=== PATIENT | male | born 2000 | race African-American/Black ===

== ENCOUNTER 2020-09-30 23:23 | Emergency (ER) | payer SELFPAY, OTHER ==
[~2020-09-30 23:23] MED LIST: Iopamidol-370 76% 500 ML 1 ML ONE
[2020-09-30] MEDS ORDERED: Ketorolac Tromethamine 30 MG/ML VIAL ONE (23:54)
== END 2020-10-01 01:16 | disposition home or self-care (01) ==
LOC: ERS 23:23
DX: T18.8XXA Foreign body in other parts of alimentary tract, initial encounter (principal); M79.10 Myalgia, unspecified site; V89.2XXA Person injured in unspecified motor-vehicle accident, traffic, initial encounter
CPT/HCPCS: 74177; 96374; J1885